=== PATIENT | female | born 1960 | race Caucasian/White ===

== ENCOUNTER 2021-07-25 07:04 | Outpatient (CLI) | payer BC ==
[~2021-07-25 07:04] MED LIST: AMLO5TAB4 PO; CLON0.5T4 PO; ERTA1VIA IJ; ESCI10TA PO; FURO-150 PO; GLU500 PO; HYDR-3925 PO; LISI-221 PO; METO50TA7 PO; PERC10 PO; SITA100T11 PO; UMEC1BLS IH; ZIT250 PO
[2021-07-25 07:54] LABS: BASOPHILS # (AUTO) 0.1 K/uL (0.0-0.2); BASOPHILS % (AUTO) 0.6 % (0.0-2.0); EOSINOPHILS # (AUTO) 0.2 K/uL (0.0-0.4); EOSINOPHILS % (AUTO) 1.5 % (0.0-4.0); HEMATOCRIT 43.4 % (36-48); HEMOGLOBIN 14.6 g/dL (12.0-16.0); LYMPHOCYTES # (AUTO) 2.3 K/uL (1.0-5.5); LYMPHOCYTES % (AUTO) 19.5 % (20.5-51.5); MEAN CORPUSCULAR HEMOGLOBIN 29 pg (27-31); MEAN CORPUSCULAR HGB CONC 34 % (32-36); MEAN CORPUSCULAR VOLUME 86 fL (79.0-98.0); MONOCYTES # (AUTO) 0.5 K/uL (0.0-1.0); MONOCYTES % (AUTO) 4.4 % (1.7-9.3); NEUTROPHILS # (AUTO) 8.6 K/uL (1.8-7.7); PLATELET COUNT (AUTO) 207 K/uL (130-430); RED BLOOD CELL COUNT(AUTO) 5.08 MIL/uL (4.2-6.2); RED CELL DISTRIBUTION WIDTH 13.2 % (9.0-15.0); WHITE BLOOD COUNT (AUTO) 11.6 K/uL (4.8-10.8)
[2021-07-25 08:31] LABS: ALBUMIN 4.1 g/dL (3.4-4.8); CALCIUM 9.7 mg/dL (8.4-11.0); CREATININE 0.91 mg/dL (0.55-1.30); POTASSIUM 4.5 mmol/L (3.5-5.1); TOTAL BILIRUBIN 0.3 mg/dL (0.0-1.0)
[2021-07-25 08:34] LABS: ERYTHROCYTE SEDIMENTATION RATE 13 MM/HR (0-20)
== END 2021-07-25 20:38 | disposition home or self-care (01) ==
LOC: SCT 07:04 → MERGE 07:04 → SCT 20:38
PROVIDERS: ATTEND Preventive Medicine Preventive Medicine/Occupational Environmental Medicine
DX: M27.2 Inflammatory conditions of jaws (principal); R19.7 Diarrhea, unspecified; M47.812 Spondylosis without myelopathy or radiculopathy, cervical region
CPT/HCPCS: 36415; 70487; 70492; 76376; 80053; 85025; 85651; 87040; Q9967

== ENCOUNTER 2022-03-29 09:31 | Inpatient (IN) | payer BC ==
[~2022-03-29] VITALS: Ht 177.8 cm; Wt 122.5 kg
[2022-03-29 09:31] VITALS: BP_SYST 147
--- NOTE | 2022-03-29 09:31 | NUR ---
BROUGHT BACK TO BED #8 AND TRIAGED. REPORT GIVEN TO BARBARA
[2022-03-29 09:58] LABS: BASOPHILS # (AUTO) 0.1 K/uL (0.0-0.2); BASOPHILS % (AUTO) 0.7 % (0.0-2.0); EOSINOPHILS # (AUTO) 0.1 K/uL (0.0-0.4); HEMATOCRIT 39.6 % (36-48); HEMOGLOBIN 13.5 g/dL (12.0-16.0); LYMPHOCYTES # (AUTO) 2.3 K/uL (1.0-5.5); LYMPHOCYTES % (AUTO) 20.4 % (20.5-51.5); MEAN CORPUSCULAR HEMOGLOBIN 28 pg (27-31); MEAN CORPUSCULAR HGB CONC 34 % (32-36); MEAN CORPUSCULAR VOLUME 83 fL (79.0-98.0); MONOCYTES # (AUTO) 0.6 K/uL (0.0-1.0); MONOCYTES % (AUTO) 5.6 % (1.7-9.3); NEUTROPHILS % (AUTO) 72.3 % (40.0-70.0); PLATELET COUNT (AUTO) 234 K/uL (130-430); RED BLOOD CELL COUNT(AUTO) 4.75 MIL/uL (4.2-6.2); RED CELL DISTRIBUTION WIDTH 13.9 % (9.0-15.0); WHITE BLOOD COUNT (AUTO) 11.1 K/uL (4.8-10.8)
--- NOTE | 2022-03-29 10:16 | NUR ---
BIBS WITH C/C OF EPIGASTRIC PAIN THAT STARTED 5 DAYS AGO WITH WORSENING PAIN THIS AM. PT REPORTS BENDING OVER AND HAVING EPIGASTRIC PAIN, WENT TO THE BATHROOM AND HAD 1 EPISODE OF INCONTINENCE AND PT CAME TO HOSPITAL. PT STATED SHE HAS CHRONIC HX FOR THE LAST YEAR AND A HALF OF DIARRHEA FROM ALF ON AND OFF ANTIBIOTIC USE FOR OSTEOMYELITIS IN HER JAW. PT REPORTED SOB THIS AM, HX OF COPD. CURRENTLY ABLE TO SPEAK FULL SENTENCES WITHOUT ANY DISTRESS, 96-97% O2 SAT ON ROOM AIR WITH BILATERAL CLEAR LUNG SOUNDS. PENDING LAB RESULTS. DR. BUSTILLOS SEEN AND ASSESSED PT.
[2022-03-29 10:27] LABS: ANION GAP 12 (5-15); CALCIUM 9.1 mg/dL (8.4-11.0); CHLORIDE 103 mmol/L (98-107); CREATININE 1.27 mg/dL (0.55-1.30); GLUCOSE 373 mg/dL (70-99); POTASSIUM 3.9 mmol/L (3.5-5.1); SODIUM SERUM 136 mmol/L (136-145); UREA NITROGEN, BLOOD 25 mg/dL (8-21)
[2022-03-29 10:31] LABS: GFR AFRICAN AMERICAN 55 mL/min (>90)
[2022-03-29 10:35] LABS: ALANINE AMINOTRANSFERASE 30 U/L (12-78); ALBUMIN 3.4 g/dL (3.4-4.8); AMYLASE 29 U/L (0-100); ASPARTATE AMINOTRANSFERASE 17 U/L (10-37); LIPASE 62 U/L (73-393); TOTAL BILIRUBIN 0.5 mg/dL (0.0-1.0)
--- NOTE | 2022-03-29 11:20 | NUR ---
DR. BUSTILLOS WANTS TO ADMIT PT FOR CARDIAC BIGEMINY/TRIGEMINY AND FURTHER WORK UP. PT ANXIOUS ABOUT STAYING IN HOSPITAL. EDUCATED PT ON CARDIAC ARRHYTHMIAS. PT VERBALIZED UNDERSTANDING AND WILLING TO STAY IN HOSPITAL. INFORMED DR. BUSTILLOS ABOUT PT'S ANXIETY. OK PER DR. BUSTILLOS FOR XANAX 0.25MG PO X 1.
[2022-03-29] MEDS ORDERED: ALPRAZolam 0.25 MG TABLET PO ONE ×2 (11:30→11:45)
[2022-03-29] MEDS ORDERED: MAG HYDROX/AL HYDROX/SIMETH 30 ML, DICYCLOMINE HCL 20 MG, LIDOCAINE VISCOUS 2% 15ML (PO... PO ONE ×3 (13:00)
--- NOTE | 2022-03-29 13:23 | NUR ---
Admit bed requested Patient will be admitted to care of . Admitted to TELE unit. Diagnosis CARDIAC ARRHYTHMIA Inpatient (Yes or No) Y Observation (Yes or No) N Orientation concerns or request close to nursing station (Yes or No) N Covid Status NEGATIVE On vent or bipap N Isolation requirements N Needs a sitter N From Home (Yes or if No enter name of facility) N Requires Dialysis (Yes or No) N Med Rec Completed (Yes of No) Y
[2022-03-29] MEDS ORDERED: DOCUSATE SODIUM 100 MG CAPSULE PO PRN (13:30)
[2022-03-29] MEDS ORDERED: ACETAMINOPHEN 325 MG TABLET PO PRN (13:30)
[2022-03-29] MEDS ORDERED: POTASSIUM CHLORIDE 20 MEQ TAB.PRT.SR PO PRN (13:30)
[2022-03-29] MEDS ORDERED: DEXTROSE 50% JECT 50 ML DISP.SYRIN IVP PRN (13:30)
[2022-03-29] MEDS ORDERED: NALOXONE HCL 0.4 MG/ML AMP (NARCAN) IVP PRN ×2 (13:30)
[2022-03-29] MEDS ORDERED: LORazepam 1 MG TABLET PO PRN (13:30)
[2022-03-29] MEDS ORDERED: MUPIROCIN 2% TOPICAL OINTMENT 22 GM NS PRN (13:30)
[2022-03-29] MEDS ORDERED: MAGNESIUM SULFATE 50 ML IV PRN (13:30)
[2022-03-29] MEDS ORDERED: MORPHINE 2 MG/ML INJ. SYRINGE IVP PRN ×2 (13:30)
[2022-03-29] MEDS ORDERED: ONDANSETRON HCL 4 MG/2 ML VIAL IVP PRN (13:30)
--- NOTE | 2022-03-29 15:10 | NUR ---
CONSULT CARDIOLOGY CARDIAC ARRHYTHMIA DR REYNA,Y SENT TEXT TO DR REYNA
--- NOTE | 2022-03-29 15:21 | NUR ---
PT WITH BED IN 130A, TRANSFERED PT TO ROOM WITH AIRWORTHINESS SAFETY INSPECTOR. REPORT GIVEN TO DESI NUNO. JEFFREY NOTED. PT ANXIOUS BEFORE TRANSFER BUT NOW AT EASE. CONDITION STABLE AT TIME OF TRANSFER.
[2022-03-29 15:35] VITALS: BP_SYST 108
[2022-03-29 16:11] VITALS: BP_SYST 115
[2022-03-29] MEDS ORDERED: IPRATROPIUM/ALBUTEROL SULFATE 3 ML AMPUL.NEB (DUONEB) INH PRN (18:15)
[2022-03-29] MEDS: INSULIN LISPRO SLIDING SCALE 100 UNITS/ML VIAL (humaLOG) SUBCUT PRN ×2 (18:57→22:01)
[2022-03-29] MEDS: metFORMIN HCL 500 MG TABLET PO SCH (19:05)
--- NOTE | 2022-03-29 19:30 | NUR ---
Opening note Received patient awake, AOx4, resting in bed, no distress. She is on room air and IV to RAC is SL. She ambulates to restroom; no bed alarm, ambulates w/steady gait. Bed is locked in lowest position, side rails up 2x and call light w/in reach.
[2022-03-29 20:00] VITALS: BP_SYST 96
[2022-03-29 21:42] VITALS: BP_SYST 115
[2022-03-29] MEDS: NACL 0.9% 1,000 ML IV SCH (21:43)
--- NOTE | 2022-03-29 21:43 | NUR ---
Meds Scheduled meds given; BS result was 200mg/dL and covered per sliding scale, 2U of Humalog.
[2022-03-29] MEDS: HEPARIN SODIUM,PORCINE 5,000 UNITS/ML VIAL SUBCUT SCH (21:58)
--- NOTE | 2022-03-29 22:44 | NUR ---
Consultation Paged Reason for Consultation: Shortness of Breath Was consult called: Y Person who was notified: Rochelle Consulting Physician: Ordering Physician: Dr. Reyez
--- NOTE | 2022-03-30 00:40 | NUR ---
New IV IV on RAC got infiltrated and IVF was stopped. Third nurse was able to secure new IV site. #20G to left wrist, blood return noted, resumed fluids.
[2022-03-30 00:50] VITALS: BP_SYST 119
--- NOTE | 2022-03-30 00:52 | NUR ---
Mag sulfate Administered Magnesium Sulfate IV, as ordered (Mg level 1.5); was unable to administer earlier d/t loss of IV site. Reviewed indication, side effects with patient and she verbalized understanding. VSS and presently denies pain. Requested coffee and cup of decaf coffee provided.
--- NOTE | 2022-03-30 02:28 | NUR ---
resting Patient resting w/eyes closed, no distress, symmetrical rise and fall of chest. IVF infusing well, Magnesium sulfate infusion complete; tolerated, no s/sx of infiltration. Call light w/in reach.
[2022-03-30] MEDS: INSULIN LISPRO SLIDING SCALE 100 UNITS/ML VIAL (humaLOG) SUBCUT PRN ×2 (06:24→17:52)
[2022-03-30 06:31] LABS: BASOPHILS % (AUTO) 0.2 % (0.0-2.0); EOSINOPHILS # (AUTO) 0.2 K/uL (0.0-0.4); EOSINOPHILS % (AUTO) 2.1 % (0.0-4.0); HEMATOCRIT 35.8 % (36-48); HEMOGLOBIN 12.2 g/dL (12.0-16.0); LYMPHOCYTES # (AUTO) 3.1 K/uL (1.0-5.5); LYMPHOCYTES % (AUTO) 29.4 % (20.5-51.5); MEAN CORPUSCULAR HEMOGLOBIN 29 pg (27-31); MEAN CORPUSCULAR HGB CONC 34 % (32-36); MEAN CORPUSCULAR VOLUME 84 fL (79.0-98.0); MONOCYTES # (AUTO) 0.7 K/uL (0.0-1.0); MONOCYTES % (AUTO) 6.9 % (1.7-9.3); NEUTROPHILS # (AUTO) 6.4 K/uL (1.8-7.7); NEUTROPHILS % (AUTO) 61.4 % (40.0-70.0); PLATELET COUNT (AUTO) 194 K/uL (130-430); RED BLOOD CELL COUNT(AUTO) 4.26 MIL/uL (4.2-6.2); RED CELL DISTRIBUTION WIDTH 13.6 % (9.0-15.0); WHITE BLOOD COUNT (AUTO) 10.4 K/uL (4.8-10.8)
[2022-03-30 06:58] LABS: CALCIUM 8.9 mg/dL (8.4-11.0); CREATININE 1.19 mg/dL (0.55-1.30); POTASSIUM 3.7 mmol/L (3.5-5.1)
[2022-03-30 07:33] LABS: BILIRUBIN,URINE NEGATIVE (NEGATIVE); BLOOD, URINE NEGATIVE (NEGATIVE); COLOR,URINE YELLOW (YELLOW); GLUCOSE,URINE NEGATIVE (NEGATIVE); KETONES,URINE NEGATIVE (NEGATIVE); LEUKOCYTE ESTERASE ,URINE 2+ (NEGATIVE); NITRITE, URINE NEGATIVE (NEGATIVE); PH,URINE 5.5 (5.0-8.0); PROTEIN URINE NEGATIVE (NEGATIVE); UROBILINOGEN,URINE 0.2 (0.2-1.0)
[2022-03-30 07:56] LABS: CLARITY/URINE HAZY (CLEAR)
[2022-03-30] MEDS ORDERED: FUROSEMIDE 20 MG TABLET PO SCH (09:00)
[2022-03-30] MEDS: CITALOPRAM HYDROBROMIDE 20 MG TABLET PO SCH (09:10)
[2022-03-30] MEDS: METOPROLOL SUCCINATE 50 MG TAB.SR.24H (TOPROL XL) PO SCH (09:11)
[2022-03-30] MEDS: metFORMIN HCL 500 MG TABLET PO SCH ×2 (09:12→18:09)
[2022-03-30] MEDS: amLODIPine BESYLATE 5 MG TABLET PO SCH (09:13)
[2022-03-30] MEDS: HEPARIN SODIUM,PORCINE 5,000 UNITS/ML VIAL SUBCUT SCH ×2 (09:16→21:23)
[2022-03-30 09:40] LABS: BACTERIA,URINE MODERATE /HPF (None Seen); RBC,URINE 0-3 /HPF (0-3); WBC,URINE 20-50 /HPF (0-3)
[2022-03-30] MEDS: ZOLPIDEM TARTRATE 5 MG TABLET PO PRN ×2 (12:50→17:57)
[2022-03-30] MEDS: NACL 0.9% 1,000 ML IV SCH (14:34)
[2022-03-30] MEDS ORDERED: clonazePAM 0.5 MG TABLET PO PRN ×2 (18:30→21:00)
[2022-03-30 18:35] VITALS: BP_SYST 138
[2022-03-30] MEDS ORDERED: BUDESONIDE 0.5 MG/2 ML AMPUL.NEB INH SCH (19:00)
[2022-03-30 20:00] VITALS: BP_SYST 110
[2022-03-30] MEDS: LORazepam 1 MG TABLET PO PRN (21:34)
[2022-03-31] VITALS: BP_SYST 128
[2022-03-31] MEDS: NACL 0.9% 1,000 ML IV SCH (03:00)
[2022-03-31] MEDS: IPRATROPIUM/ALBUTEROL SULFATE 3 ML AMPUL.NEB (DUONEB) INH SCH ×3 (03:00→11:35)
[2022-03-31 04:00] VITALS: BP_SYST 141
[2022-03-31 06:39] LABS: BASOPHILS % (AUTO) 0.4 % (0.0-2.0); EOSINOPHILS # (AUTO) 0.2 K/uL (0.0-0.4); EOSINOPHILS % (AUTO) 1.8 % (0.0-4.0); HEMATOCRIT 35.6 % (36-48); HEMOGLOBIN 12.3 g/dL (12.0-16.0); LYMPHOCYTES # (AUTO) 2.9 K/uL (1.0-5.5); LYMPHOCYTES % (AUTO) 30.8 % (20.5-51.5); MEAN CORPUSCULAR HEMOGLOBIN 29 pg (27-31); MEAN CORPUSCULAR HGB CONC 35 % (32-36); MEAN CORPUSCULAR VOLUME 83 fL (79.0-98.0); MONOCYTES # (AUTO) 0.6 K/uL (0.0-1.0); MONOCYTES % (AUTO) 6.4 % (1.7-9.3); NEUTROPHILS # (AUTO) 5.7 K/uL (1.8-7.7); NEUTROPHILS % (AUTO) 60.6 % (40.0-70.0); PLATELET COUNT (AUTO) 189 K/uL (130-430); RED BLOOD CELL COUNT(AUTO) 4.28 MIL/uL (4.2-6.2); RED CELL DISTRIBUTION WIDTH 13.3 % (9.0-15.0); WHITE BLOOD COUNT (AUTO) 9.3 K/uL (4.8-10.8)
[2022-03-31 08:00] VITALS: BP_SYST 141
[2022-03-31 08:19] LABS: CALCIUM 8.6 mg/dL (8.4-11.0); CREATININE 0.92 mg/dL (0.55-1.30); POTASSIUM 3.7 mmol/L (3.5-5.1); THYROID STIMULATING HORMONE 0.99 uIu/mL (0.36-3.74)
[2022-03-31] MEDS: metFORMIN HCL 500 MG TABLET PO SCH (08:48)
[2022-03-31] MEDS: CITALOPRAM HYDROBROMIDE 20 MG TABLET PO SCH (08:48)
[2022-03-31] MEDS: HEPARIN SODIUM,PORCINE 5,000 UNITS/ML VIAL SUBCUT SCH (09:14)
[2022-03-31] MEDS: METOPROLOL SUCCINATE 50 MG TAB.SR.24H (TOPROL XL) PO SCH (09:16)
[2022-03-31] MEDS: amLODIPine BESYLATE 5 MG TABLET PO SCH (09:16)
[2022-03-31] MEDS: LORazepam 1 MG TABLET PO PRN (09:17)
[2022-03-31] MEDS ORDERED: LEVO500T90 PO (10:34)
[2022-03-31 12:00] VITALS: BP_SYST 139
--- NOTE | 2022-03-31 12:33 | NUR ---
INSTRUCTIONAL SUPPORT SPECIALIST ACSW Pippa met with patient at bedside to address concerns with anxiety and panic attacks. ACSW completed introductions and provided business card, Patient was awake, alert and orientedx4 and open to contact. Mental Health- Patient shares she has Anxiety and Depression. When asked about diagnosis, she shared she has not been formally diagnosed. She currently participates in weekly individual therapy, and meets monthly with a psychiatrist for medication management. Denies past and current SI Social- Patient's 2 years ago. She lives alone, states she has friends that support. When asked about natural supports, patient did not share familial supports only friends. ACSW discussed the impact/connection of mental and physical health on one another. Patient shares weekly therapy was originally for grief counseling. ACSW utilized Empathetic and Reflective listening techniques to acknowledge of and ongoing grief process. ACSW also encouraged patient to utilize support system to talk about her feelings, and encouraged her to update therapist on panic attack and increasing anxiety symptoms so she can obtain additional coping skills/tools to address and decrease episodes of anxiety. ACSW provided resources for Crisis Text Line and Behavioral Health packet. ACSW will continue to be available as needed
--- NOTE | 2022-03-31 13:00 | NUR ---
PT CLEARED FOR DISCHARG NILDA RIA BUCKLEY AND DR. HAIR. DENIES ANY SHORTNESS OF BREATH AT THIS TIME. VITAL SIGNS ARE STABLE. EDUCATED ABOUT DISCHARGE INSTRUCTIONS. PT WILL F/U WITH PSYCHIATRIST AND SHIP'S ENGINEER AFTER DISCHARGE. PT WHEELED TO CAR. AMBUALTED SAFELY TO HER VEHICLE. STABLE AT DISCHARGE
[2022-03-31 13:18] VITALS: BP_SYST 135
== END 2022-03-31 14:05 | disposition home or self-care (01) | DRG 189 ==
LOC: SED 09:31 → STU 12:07
PROVIDERS: ADMIT General Practice; ATTEND General Practice
DX: J96.01 Acute respiratory failure with hypoxia (principal); J44.1 Chronic obstructive pulmonary disease with (acute) exacerbation; E87.2 Acidosis; F32.A Depression, unspecified; E78.5 Hyperlipidemia, unspecified; F41.9 Anxiety disorder, unspecified; E86.0 Dehydration; E66.9 Obesity, unspecified; E11.9 Type 2 diabetes mellitus without complications; R53.81 Other malaise; I11.0 Hypertensive heart disease with heart failure; Z20.822 Contact with and (suspected) exposure to COVID-19; I50.9 Heart failure, unspecified; I49.9 Cardiac arrhythmia, unspecified; Z77.090 Contact with and (suspected) exposure to asbestos; Z80.1 Family history of malignant neoplasm of trachea, bronchus and lung; Z87.891 Personal history of nicotine dependence; Z88.0 Allergy status to penicillin; Z88.8 Allergy status to other drugs, medicaments and biological substances; Z68.38 Body mass index [BMI] 38.0-38.9, adult
CPT/HCPCS: 36415; 36600; 71045; 71250-TC; 76376; 80048; 80053; 81000; 82150; 82803-TC; 82962; 83036; 83605; 83690; 83735; 83880; 84443; 84484; 85025; 85379; 87086; 93005; 93306; 94640; 94760; 99285; G0378; J1644; J1956; J2001; J3475; J7626